=== PATIENT | female | born 1965 | race Caucasian/White ===

== ENCOUNTER → 2020-05-10 12:12 | Outpatient (CLI) | payer OTHER, SELFPAY ==
--- NOTE | ~2020-05-10 | DEXA_ITS ---
Bone Density Report Name: Ysabel Irene Age: 54 Sex: Female Ethnicity: White Date of : 1965 Indication: postmenopausal; screening for osteoporosis; height loss; cancer; Referring Provider: VAZQUEZ RAMOS Study: Bone densitometry was performed. Exam Date: May 10, 2020 Accession number: [id number] Bone Density: Region BMD T-score Z-score Classification AP Spine (L1, L2, L3) 1.088 0.6 1.7 Normal Femoral Neck (Left) 0.852 0.0 1.1 Normal Total Hip (Left) 1.005 0.5 1.2 Normal Femoral Neck (Right) 0.811 -0.3 0.7 Normal Total Hip (Right) 0.921 -0.2 0.5 Normal Total Hip Mean 0.963 0.2 0.9 Normal World Health Organization criteria for BMD impression classify patients as: Normal (T-score at or above -1.0), Osteopenia (T-score between -1.0 and -2.5), or Osteoporosis (T-score at or below -2.5). 10-year Fracture Risk: FRAX not reported because: All T-scores for Spine Total, Hip Total, Femoral Neck at or above -1.0 Treated for osteoporosis Clinical Information Provided by Patient: Is being treated for osteoporosis Has used the following medications: Vitamin D, TAMOXIFEN Has the following medical conditions: Cancer Patient maximum height was 71 Menopause Age: 50 Drinks caffeinated beverages Onset of menses at age 13 Number of children 0 Impression: The patient has normal bone mass. Discussion: It is important to ask patients whether they are taking their medications and to encourage continued and appropriate compliance with their osteoporosis therapies to reduce fracture risk. It is also important to review their risk factors and encourage appropriate calcium and vitamin D intakes, exercise, fall prevention and other lifestyle measures. Follow-Up: Consider a repeat BMD and Vertebral Fracture Assessment (VFA) exam in 2 years or sooner if medically necessary, to reassess this patient's status. Reported by: JAMES on 05/10/2020 12:34:00 PM. Reviewed, dictated and finalized at location [facility]
== END ==
PROVIDERS: PCP Internal Medicine; Visit Provider Obstetrics & Gynecology Gynecology
DX: Z78.0 Asymptomatic menopausal state (principal)
CPT/HCPCS: 77080

== ENCOUNTER → 2020-08-21 01:50 | Outpatient (CLI) | payer OTHER, SELFPAY ==
[2020-08-21 19:56] LABS: SARS-CoV-2 RNA PCR Negative
== END ==
PROVIDERS: PCP Internal Medicine; Visit Provider Internal Medicine Gastroenterology
DX: Z01.812 Encounter for preprocedural laboratory examination (principal); Z20.822 Contact with and (suspected) exposure to COVID-19
CPT/HCPCS: C9803; U0003; U0005

== ENCOUNTER 2020-08-24 03:09 | Day surgery (SDC) | payer OTHER, SELFPAY ==
[2020-08-13 08:26] VITALS: BMI 26.4
[2020-08-24 08:19] VITALS: BP 120/75; PULSE 71; RESP 18; TEMP 36.1; O2SAT 99; BMI 27.1
[2020-08-24] MEDS: LACTATED RINGERS 1,000 ML 150 ML IV CONT (08:32)
--- NOTE | 2020-08-24 08:41 | WPDANESEPPF ---
Anes - Initial Pre Proc Eval Procedure: Operation Date: 08/24/20 09:30 Proposed Procedures p Screening Colonoscopy - Vicente Chua MD Date/Time: 08/24/20 08:41 Surgeon: Vicente Chua MD Pre Op Diagnosis: neoplasm screening, family hx of colon ca Patient Data Age: 55 Gender: F Height: 5 ft 11 in Weight: 88.3 kg Last Vital Signs Temp 97 F L 08/24/20 08:19 Pulse 71 08/24/20 08:19 Resp 18 08/24/20 08:19 BP 120/75 08/24/20 08:19 Pulse Ox 99 08/24/20 08:19 Allergies Allergy/AdvReac Type Severity Reaction Status Date / Time No Known Allergies Allergy Verified 08/24/20 08:18 Home Medications Medication Instructions Recorded Confirmed Type cholecalciferol (vitamin D3) 5,000 unit PO DAILY 02/18/19 08/13/20 History [Vitamin D3] tamoxifen 20 mg PO DAILY 06/13/19 08/13/20 History sod picosulf 10 mg-magnes 3.5 160 ml PO BID #160 ml 08/18/20 Rx gram-citric 12 gram/160 mL oral solution Patient hx anesthesia problems: none Family hx anesthesia problems: none PMFSH Past Medical History Medical History (Updated 04/22/20 @ 09:40 by Marcelo Amin MD) No pertinent past medical history Surgical History Surgical History (Updated 04/26/20 @ 13:16 by Jermaine Shell) H/O bilateral mastectomy No pertinent past surgical history Family History Family History (Updated 04/26/20 @ 13:18 by Jermaine Shell) Mother Colon cancer Father , Age 86 from Alzheimer's Disease Hypertension Grandparent , Age 85 from a Fall No problems noted. Grandparent , Age 93 Heart Issues Dementia Grandparent , Age 87 Heart Issues No problems noted. Social History Social History (Updated 04/26/20 @ 13:21 by Jermaine Shell) Smoking status: Never smoker Alcohol intake: current Alcohol use details: MONTHLY Substance use: never Living arrangements: with family Gender identity (if verbalized by the patient): Female Spiritual care concerns: No Anes - Eval Final PreProcedure Day of Procedure 08/24/20 08:41 Patient weight: normal Heart: regular rate and rhythm Lungs: clear to auscultation Airway: Mallampati scale class II Neurological: alert and oriented Last oral intake: >/= 8 hours ASA classification: II Emergent: no Anesthetic plan: proceed Anesthesia type and monitoring: general GIVS and standard monitoring Informed Consent: The patient's anesthetic plan and its attendant risks and benefits were discussed with the patient/family/POA. Questions were solicited and answers provided to the satisfaction of the patient/family/POA.
--- NOTE | 2020-08-24 09:15 | PM.HPGS ---
History of Present Illness History of Present Illness Consent: Risks, benefits, and alternatives have been discussed and questions answered. Patient agrees to proceed with procedure. Chief complaint: neoplasm screening, family hx of colon ca Narrative: Ysabel Irene is a 55 year old female here for colonoscopy, last one more than 5 years ago. Mother had colon cancer Review of Systems Constitutional: Constitutional: Denies headache(s) and Denies weakness Eyes: Eyes: Denies blurry vision ENT: Reports Normal hearing present, Denies headache(s) and Denies neck pain Cardiovascular: Cardiovascular: Denies chest pain and Denies dyspnea Respiratory: Respiratory: Denies dyspnea Gastrointestinal: Gastrointestinal: Reports no additional gastrointestinal complaints Genitourinary: Genitourinary: Denies dysuria Musculoskeletal: Musculoskeletal: Denies neck pain Integumentary/Breasts: Skin/Breast: Denies dry skin Neurologic: Reports Normal hearing present, Denies headache(s) and Denies weakness Psychiatric: Psychiatric: Denies anxiety Endocrine: Endocrine: Denies change in body appearance Hematologic/Lymphatic: Hematologic/Lymphatic: Denies easy bleeding Allergic/Immunologic: Allergic/Immunologic: Denies urticaria PMFSH Past Medical History Medical History (Updated 04/22/20 @ 09:40 by Marcelo Amin MD) No pertinent past medical history Surgical History Surgical History (Updated 04/26/20 @ 13:16 by Jermaine Shell) H/O bilateral mastectomy No pertinent past surgical history Family History Family History (Updated 04/26/20 @ 13:18 by Jermaine Shell) Mother Colon cancer Father , Age 86 from Alzheimer's Disease Hypertension Grandparent , Age 85 from a Fall No problems noted. Grandparent , Age 93 Heart Issues Dementia Grandparent , Age 87 Heart Issues No problems noted. Social History Social History (Updated 04/26/20 @ 13:21 by Jermaine Shell) Smoking status: Never smoker Alcohol intake: current Alcohol use details: MONTHLY Substance use: never Living arrangements: with family Gender identity (if verbalized by the patient): Female Spiritual care concerns: No Meds Home Medications and Allergies Home Medications Medication Instructions Recorded Confirmed Type cholecalciferol (vitamin D3) 5,000 unit PO DAILY 02/18/19 08/13/20 History [Vitamin D3] tamoxifen 20 mg PO DAILY 06/13/19 08/13/20 History sod picosulf 10 mg-magnes 3.5 160 ml PO BID #160 ml 08/18/20 Rx gram-citric 12 gram/160 mL oral solution Allergies Allergy/AdvReac Type Severity Reaction Status Date / Time No Known Allergies Allergy Verified 08/24/20 08:18 Vital Signs Vital Signs - 24 hr 08/24/20 08:19 Temperature 97 F L Pulse Rate 71 Respiratory Rate 18 Blood Pressure 120/75 Pulse Oximetry 99 Exam Const: General: comfortable and no acute distress HENMT: General nose exam: Normal nares present Eyes: General: appearance normal, both eyes and all related structures Neck: Neck: no JVD Resp: Auscultation: clear to auscultation bilaterally Cardio: Rate: regular rate Rhythm: regular rhythm GI: Inspection: non-distended GI Palp: Yes Soft to palpation Skin: General skin exam: normal color Neuro: General: gait normal Speech: normal speech Extrem: General: normal to inspection Psych: Mental Status: mental status grossly normal Assessment and Plan Assessment and plan (1) Family history of colon cancer: Code(s): Z80.0 - Family history of malignant neoplasm of digestive organs Status: Acute Assessment and Plan: colonoscopy
[2020-08-24 09:48] VITALS: BP 134/89; PULSE 83; RESP 20; O2SAT 99
[2020-08-24 09:58] VITALS: BP 133/102; PULSE 83; RESP 25; O2SAT 97
[2020-08-24 10:08] VITALS: BP 128/87; PULSE 80; RESP 22; O2SAT 100
--- NOTE | 2020-08-24 10:22 | SUR.PHASEII ---
Pt initially had some nausea after procedure, nausea improved as time progressed.
== END 2020-08-24 10:25 | disposition home or self-care (01) ==
PROVIDERS: PCP Internal Medicine; Visit Provider Internal Medicine Gastroenterology
PROC: 0DJD8ZZ Inspection of Lower Intestinal Tract, Via Natural or Artificial Opening Endoscopic (ICD-10-PCS; CPT 45378; principal; 2020-08-24 09:30)
DX: Z12.11 Encounter for screening for malignant neoplasm of colon (principal); D12.2 Benign neoplasm of ascending colon; D12.5 Benign neoplasm of sigmoid colon; K64.8 Other hemorrhoids; Z80.0 Family history of malignant neoplasm of digestive organs; Z90.13 Acquired absence of bilateral breasts and nipples
CPT/HCPCS: 45385; 88305; C9803; J2001; J2704; J7120; U0003; U0005

== ENCOUNTER 2020-12-24 12:30 | Outpatient (RCR) | payer OTHER, SELFPAY ==
--- NOTE | 2020-12-07 14:35 | PTOPEVAL ---
PHYSICAL THERAPY EVALUATION AND PLAN OF CARE 12-07-20 Thank you for referring Ysabel Irene to [facility].? She is scheduled to be seen for therapy? 2 x/week for 3 weeks. Please review, sign, date and return this plan of care LINO. I agree with and certify that the following plan of care is medically necessary. Referring Physician Date Attending Provider: Marcelo Amin MD *PT Outpatient Evaluation Document 12/07/20 13:35 ELENO (Rec: 12/07/20 14:35 ELENO [id number]) Past Medical History Source of Past Medical History Recalled from Previous Visit, Confirmed with Patient/Family Neurological History Hx Neurological Disorders No Significant History Cardiovascular History Hx Hypertension Yes: monitor- diet control Respiratory History Hx Respiratory Disorders No Significant History Gastrointestinal History Hx Polyps Yes Genitourinary History Hx Urinary Tract Infection Yes Musculoskeletal History Hx Musculoskeletal Disorders No Significant History Hematological History Hx Hematological Disorders No Significant History Endocrine History Hx Endocrine Disorders No Significant History HEENT History Hx HEENT Disorders No Significant History Integumentary History Hx Skin Disorders No Significant History Reproductive History Hx Mastectomy Yes: DOUBLE MASTECTOMY 2018 Hx Post Menopausal Yes Psychosocial History Hx Psychiatric Disorders No Significant History Pain History History of Any Previous or Ongoing No Significant History Instance of Pain Anesthesia History Hx Anesthesia Reactions No Significant History Other History Hx Cancer Yes: BREAST CA 2019 Hx Chemotherapy Yes Hx Radiation Therapy Yes Evaluation Information Problem Diagnosis lymphedema over L trunk Onset July 2020 Prior Level of Function Activity Level (Last 3 Months) Occupation not working outside of home Hand Dominance Right Activity of Daily Living Ability Independent Indoor/Home Mobility Independent Community Mobility Independent Stairs Ability Independent Functional Cognition (Planning, Shopping Independent , Taking Medications) Cooking Yes Cleaning Yes Laundry Yes Shopping Yes Driving Yes Comments Additional Prior Level of Function per pt- surgeon restrictions Comments of 30# lifting; family assist with heavy lifting tasks; is
--- NOTE | 2020-12-17 12:13 | PCPTNOTE ---
pt called att 12pm for 12:30 appt. stating she would have to cancel. Did not give a reason but was apologetic.
--- NOTE | 2020-12-24 13:36 | PTOPEVAL ---
PHYSICAL THERAPY DISCHARGE 12-24-20 Refer to the clinical summary below for her status today, compared to the initial evaluation. The goals were partiallly achieved. Thank you for referring Ysabel Irene to [facility].? Please review, sign, date and return this Discharge summary LINO. I agree with and certify that the following plan of care is medically necessary. Referring Physician Date Attending Provider: Marcelo Amin MD CC: per pt request, Gregor Buckner MD Document 12/24/20 12:35 ELENO (Rec: 12/24/20 13:36 ELENO [email or web address]) Assessment Status Discharge Subjective Information Judi reports:she is pleased Query Text:As Reported By Patient/ with how she has improved Family since coming for therapy-- shoulders and trunk are not as tight with less swelling over the side of her trunk; and her scars are looser; is doing her stretches and self massage; is going shopping this weekend to get a zip up front sports bra for compression to her sides; request that her report be forwarded to Dr Buckner also; feels that she is ready to be completed with her therapy. Pain Assessment Timing of Pain Assessment Timing of Pain Assessment Assessment Self Report Self Report Pain Level 0 Pain Score Pain Score 0: Self Report Upper Extremity Range of Motion General Upper Extremity Range of Motion Reason Not Measured WNL/Left,WNL/Right Gross Upper Extremity Range of Motion in sitting: active R and L Comments shoulder flexion and ER with range that is WNL, and does not report any tightness or pain; Lymphedema Evaluation Skin Inspection Location Left Upper Extremity,Left Anterior Lower Quadrant,Left Anterior Upper Quadrant,Left Posterior Lower Quadrant,Left Posterior Upper Quadrant,Right Upper Extremity,Right Anterior Lower Quadrant,Right Anterior Upper Quadrant,Right Posterior Lower Quadrant,Right Posterior Upper Quadrant Lymphedema Stage I Skin Inspection Comment - R trunk: anterior trunk scar with good mobility; no ed
== END 2020-12-24 16:16 | disposition home or self-care (01) ==
LOC: ANHPT 12:30
PROVIDERS: PCP Internal Medicine; Visit Provider Internal Medicine
DX: I89.0 Lymphedema, not elsewhere classified (principal)
CPT/HCPCS: 97110; 97140; 97161

== ENCOUNTER 2024-06-04 01:13 | Day surgery (SDC) | payer OTHER, SELFPAY ==
[2024-05-26 08:54] VITALS: BMI 26.9
--- OUTSIDE RECORDS SUMMARY | 2024-06-04 01:24 | XMS_ITS | Referral Summary ---
Author Organization [place] [id number] Address [address] [place] [address] Care Team Providers Care Heel Nailing Machine Operator Name Role Phone Caro Cline NP Unavailable Gregor Buckner DO Unavailable [phone] Marcelo Palmer MD Unavailable [phone] Yemi Marin MD Primary Care Provider [phone] Encounters Date Type Department Care Team Description 04/23/2024 10:45 AM TUNNEL MUCKER Office Visit [facility] [address] [place] [address] [address] [place] [address] Gregor Buckner DO Malignant neoplasm of upper-outer quadrant of right breast in female, estrogen receptor positive (HCC) (Primary Dx) 04/11/2024 Telephone [facility] [address] [place] [address] [address] [place] [address] Dyllan Hunter CMA 03/17/2024 Telephone [facility] [address] [place] [address] [address] [place] [address] Dyllan Hunter CMA from Last 3 Months Allergies No known active allergies Medications cholecalciferol (VITAMIN D-3) 2000 unit tabletIndicatio ns:Vitamin D Deficiency Take 1 tablet (2,000 Units total) by mouth 2 (two) times a day Active cyanocobalamin (Vitamin B-12) 1,000 mcg/mL injection 2 Active mupirocin (BACTROBAN) 2 % ointment APPLY TOPICALLY TO THE AFFECTED AREA TWICE DAILY 2 Active BD Integra Syringe 3 mL 23 gauge x 1 syringe 2 Active Nascobal 500 mcg/spray spray,non-aeros ol SPRAY ONCE INTO ONE NOSTRIL ONCE WEEKLY ALTERNATING WITH THE NOSTRIL THE NEXT WEEK 2 Active tamoxifen (NOLVADEX) 20 mg tabletIndicatio ns:Malignant neoplasm of upper-outer quadrant of right breast in female, estrogen receptor positive (HCC) Take 1 tablet (20 mg total) by mouth daily 90 tablet 3 5 Active Active Problems Problem Noted Date Diagnosed Date Lymphedema of upper extremity, bilateral 021 H/O bilateral mastectomy 10/03/2019 History of breast cancer 10/03/2019 Persons encountering health services in other specified circumstances 08/13/2018 Malignant neoplasm of upper- outer quadrant of right breast in female, estrogen receptor positive 08/09/2018 Cancer Staging:Clinical stage from 08/09/2018:Stage Unknown(cTX, cN1(f), cM0, G3, ER+, KS+, HER2-) - Signed by Gregor Buckner DO on 08/12/2018 Pathologic stage from 01/31/2019:No Stage Recommended(ypT1a, pN0(i+), cM0, G1, ER+, KS+, HER2-) - Signed by Gregor Buckner DO on 02/05/2019 Atypical ductal hyperplasia of breast 04/23/2015 Mammographic calcification 04/01/2015 Immunizations Immunization Administration Dates Next Due Influenza, Unspecified 12/01/2017 Pfizer SARS-CoV-2 Monovalent Vaccination (12+ Yrs) PURPLE 06/26/2020,06/03/2020 TD Preservative Free 02/20/2017 Social History Tobacco Use Types Packs/Day Years Used Date Smoking Tobacco: Never Smokeless Tobacco: Never Tobacco Cessation:Counseling Given: Not Answered Alcohol Use Standard Drinks/Week Comments Not Currently 0 (1 standard drink = 0.6 oz pur e alcohol) AUDIT-C Answer Date Recorded Q1: How often do you have a drink containing alcohol? Never 09/14/2023 Q2: How many drinks containi ng alcohol do you have on a typical day when you are drinking? Patient does not drink Q3: How often do you have si x or more drinks on one occasion? 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 Not on file Not on file Not on file Last Filed Vital Signs Vital Sign Reading Time Taken Comments Blood Pressure 134/85 04/23/2024 11:27 AM TUNNEL MUCKER Pulse 82 04/23/2024 11:27 AM TUNNEL MUCKER Temperature 37.1 C (98.8 F) 04/23/2024 11:27 AM TUNNEL MUCKER Respiratory Rate 18 04/23/2024 11:27 AM TUNNEL MUCKER Oxygen Saturation 96% 04/23/2024 11:27 AM TUNNEL MUCKER Inhaled Oxygen Concentration - - Weight 86.8 kg (191 lb 6.4 oz) 04/23/2024 11:27 AM TUNNEL MUCKER Height 179.1 cm (5' 10.5 ) 04/23/2024 11:[address] Body Mass Index 27.07 04/23/2024 11:27 AM TUNNEL MUCKER Plan of Treatment Not on file Procedures Procedure Name Priority Date/Time Associated Diagnosis Comments CRP, HIGH SENSITIVITY Routine 04/09/2024 9:22 AM TUNNEL MUCKER Malignant neoplasm of upper-outer quadrant of right breast in female, estrogen receptor positive (HCC) COMPREHENSIVE METABOLIC PANEL Routine 04/09/2024 9:22 AM TUNNEL MUCKER Malignant neoplasm of upper-outer quadrant of right breast in female, estrogen receptor positive (HCC) CBC WITH AUTO DIFFERENTIAL Routine 04/09/2024 9:22 AM TUNNEL MUCKER Malignant neoplasm of upper-outer quadrant of right breast in female, estrogen receptor positive (HCC) SCREENING MAMMOGRAM BILATERAL W ABHIJEET Schedule Routine, Read Routine (OP Routine) 06/13/2018 8:44 AM CDT Encounter for screening mammogram for malignant neoplasm of breast from Last 3 Months or Most Recently Relevant to Health Maintenance Results * (ABNORMAL) CBC with auto differential (04/09/2024 9:22 AM TUNNEL MUCKER) [facility] WBC 5.7 3.8 - 10.8 Thousand/u L [facility] RBC, POC 4.16 3.80 - 5.10 Million/uL [facility] Hgb 12.6 11.7 - 15.5 g/dL [facility] Hct 39.9 35.0 - 45.0 % [facility] MCV 95.9 80.0 - 100.0 fL [facility] MCH 30.3 27.0 - 33.0 pg [facility] MCHC 31.6(L) 32.0 - 36.0 g/dL [facility] Comment: For adults, a slight decrease in the calculated MCHC value (in the range of 30 to 32 g/dL) is most likely not clinically significant; however, it should be interpreted with caution in correlation with other red cell parameters and the patient's clinical condition. Rdw 13.5 11.0 - 15.0 % [facility] Platelets 282 140 - 400 Thousand/u L [facility] MPV 10.7 7.5 - 12.5 fL [facility] Neutrophils, abs 3,882 1,500 - 7,800 cells/uL [facility] Lymphocytes, abs 1,254 850 - 3,900 cells/uL [facility] Monocyte abs 456 200 - 950 cells/uL [facility] Eosinophils, abs 91 15 - 500 cells/uL [facility] Basophils, abs 17 0 - 200 cells/uL [facility] Neutrophils 68.1 % [facility] Lymphocyte pct 22.0 % [facility] Monocytes 8.0 % [facility] Eosinophils 1.6 % [facility] Basophils 0.3 % [facility] Blood 04/09/2024 9:22 AM TUNNEL MUCKER 04/09/2024 9:22 AM TUNNEL MUCKER Gregor Buckner DO LAB BLOOD ORDERABLES Final R esult [facility] [address] [place] [address] * (ABNORMAL) CRP (cardiac risk) (04/09/2024 9:22 AM TUNNEL MUCKER) Pathologist [facility] hsCRP 5.3(H) mg/L [facility] Comment: Reference Range Optimal <1.0 Ten HODGE et al. Endocr Pract.2017;23(Suppl 2):1-87. For ages >17 Years: hs-CRP mg/L Risk According to AHA/CDC Guidelines <1.0 Lower relative cardiovascular risk. 1.0-3.0 Average relative cardiovascular risk. 3.1-10.0 Higher relative cardiovascular risk. Consider retesting in 1 to 2 weeks to exclude a benign transient elevation in the baseline CRP value secondary to infection or inflammation. >10.0 Persistent elevation, upon retesting, may be associated with infection and inflammation. Yanira TA, Elizabeth GA, Filipe RW, et al. Markers of inflammation and cardiovascular disease: application to clinical and public health practice: A statement for healthcare professionals from the Centers for Disease Control and Prevention and the [place] [employer]. Circulation 2003; 107(3): 499-511. Blood 04/09/2024 9:22 AM TUNNEL MUCKER 04/09/2024 9:22 AM TUNNEL MUCKER Gregor Buckner DO LAB BLOOD ORDERABLES Final R esult [facility] [address] [place] [address] * Comprehensive metabolic panel (04/09/2024 9:22 AM TUNNEL MUCKER) Pathologist [facility] Glucose 96 65 - 99 mg/dL [facility] Comment: Fasting reference interval BUN 25 7 - 25 mg/dL [facility] Creatinine 1.02 0.50 - 1.03 mg/dL [facility] eGFR 64 > OR = 60 mL/min/1.7 3m2 [facility] BUN/creat ratio SEE NOTE: 6 - 22 (calc) [facility] Comment: Not Reported: BUN and Creatinine are within reference range. Sodium 143 135 - 146 mmol/L [facility] Potassium, pl 4.6 3.5 - 5.3 mmol/L [facility] Chloride 107 98 - 110 mmol/L [facility] CO2 30 20 - 32 mmol/L [facility] Calcium 9.5 8.6 - 10.4 mg/dL [facility] Protein, sr 6.6 6.1 - 8.1 g/dL [facility] Albumin 4.2 3.6 - 5.1 g/dL [facility] GLOBULIN 2.4 1.9 - 3.7 g/dL (calc) [facility] Alb/glob ratio 1.8 1.0 - 2.5 (calc) [facility] Bilirubin, total 0.6 0.2 - 1.2 mg/dL [facility] Alk phos 45 37 - 153 U/L [facility] AST 16 10 - 35 U/L [facility] ALT (SGPT) 12 6 - 29 U/L [facility] Blood 04/09/2024 9:22 AM TUNNEL MUCKER 04/09/2024 9:22 AM TUNNEL MUCKER Gregor Buckner DO LAB BLOOD ORDERABLES Final R esult [facility] [address] [place] [address] * Screening Mammogram Bilateral W Abhijeet (06/13/2018 8:44 AM CDT) Anatomical Region Laterality Modality Breast Bilateral Mammography Narrative 06/14/2018 8:59 AM CDT Mammogram Technique: Bilateral Digital Breast Tomosynthesis, Bilateral C-view 2D Screening mammogram. Views obtained: bilateral craniocaudal and bilateral mediolateral oblique. Computer Aided Detection was performed. Mammogram Findings: The present examination has been compared to prior imaging studies performed at [facility] on 04/05/2015, 04/25/2016 and 05/28/2017. There are scattered areas of fibroglandular density. There are round calcifications with grouped distribution and associated architectural distortion in the middle upper outer quadrant of the right breast. There is no suspicious abnormality in the left breast. Impression: Calcifications in the right breast require additional evaluation. Additional views are recommended. OVERALL FINAL ASSESSMENT: BI-RADS CATEGORY 0: Incomplete: Need additional imaging evaluation. Procedure Note Chhaya Davidson MD - 06/14/2018 Mammogram Technique: Bilateral Digital Breast Tomosynthesis, Bilateral C-view 2D Screening mammogram. Views obtained: bilateral craniocaudal and bilateral mediolateral oblique. Computer Aided Detection was performed. Mammogram Findings: The present examination has been compared to prior imaging studies performed at [facility] on 04/05/2015, 04/25/2016 and 05/28/2017. There are scattered areas of fibroglandular density. There are round calcifications with grouped distribution and associated architectural distortion in the middle upper outer quadrant of the right breast. There is no suspicious abnormality in the left breast. Impression: Calcifications in the right breast require additional evaluation. Additional views are recommended. OVERALL FINAL ASSESSMENT: BI-RADS CATEGORY 0: Incomplete: Need additional imaging evaluation. Caro Cline NP IMG MAMMO PROC EDURES Final Result from Last 3 Months or Most Recently Relevant to Health Maintenance Insurance [facility] [employer] OPEN ACCESS [facility] Advance Directives For more information, please contact: [phone] * Full Code (Latest Code Status on File) Date Activated Date Inactivated Comments 01/10/2019 10:53 PM 01/11/2019 4:32 PM Care Teams Heel Nailing Machine Operator Relationship Specialty Start Date End Date Yemi Mairn MD [address] [place] [address] PCP - General Internal Medicine 09/14/23 Caro Cline, DIAGNOSTIC TECHNOLOGIST [address] [address] Referring Physician Nurse Practitioner 07/25/18 Gregor Buckner DO [address] [place] [id number] Medical Oncologist/Hematologis t Hematology and Oncology 08/14/18 Marcelo Palmer MD [address] [place] [address] Referring Physician Surgical Oncology 01/09/20
--- OUTSIDE RECORDS SUMMARY | 2024-06-04 01:24 | XMS_ITS | Data Portability ---
Author Organization [facility], Main Office Address [address] [place] [address] Care Team Providers Care Photo Optics Technician Name Role Phone ELDER VILLEDA Hematology Nurse Educator Unavailable Assessment No assessment recorded. Plan of Treatment Reminders Order Date Submit Date Provider Last Modified By Organization Details Last Modified Time Details Appointments None recorded. Lab vitamin D, 25-hydrox y, total, serum 025 025 [email or web address] [facility] (Lab), [address] [place], [address], 5 15:54:54 lipid panel, serum 025 025 [email or web address] [facility] (Lab), [address] [place], [address], 5 15:54:54 CMP, serum or plasma 025 025 [email or web address] [facility] (Lab), [address] [place], [address], 5 15:54:54 vitamin B12, serum 025 025 [email or web address] [facility] (Lab), [address] [place], [address], 5 15:54:54 culture, urine 024 024 MOLLY [facility] (Lab), [address] [place], [address], 4 08:32:06 CBC w/ auto diff [address] (Lab), [address] [place], [address], 3 07:57:51 CMP, serum or plasma [address] (Lab), [address] [place], [address], 3 07:57:51 lipid panel, serum 023 023 [facility] (Lab), [address] [place], [address], 3 11:27:30 vitamin D, 25-hydrox y, total, serum [address] (Lab), [address] [place], [address], 3 07:57:52 vitamin B12, serum [address] (Lab), [address] [place], [address], 3 07:57:51 CBC w/ auto diff [address] (Lab), [address] [place], [address], 3 07:57:51 Referral None recorded. Procedures None recorded. Surgeries None recorded. Imaging None recorded. Medication Orders None recorded. Patient TargetsNo targets recorded. Patient InstructionsNo instructions recorded. Reason for Referral None Reported. Results Created Date Observation Date Name Description Value Unit Range Abnormal Flag Note LastModifiedBy Organization Detail LastModifiedTime 05/11/19 24 05/11/2023 urina lysis , dipst ick Leukocytes (reference range: negative evan/ l) Small Not Available [facility] [address] [place], [address], 05/11/2023 12:43:53 05/11/19 24 05/11/2023 urina lysis , dipst ick Nitrite (reference rage: negative mg/dl) negati ve Not Available [facility] [address] [place], [address], 05/11/2023 12:43:53 05/11/19 24 05/11/2023 urina lysis , dipst ick Urobilinogen (reference range: 0.2-1 mg/dl) 0.2 Not Available [facility] [address] [place], [address], 05/11/2023 12:43:53 05/11/19 24 05/11/2023 urina lysis , dipst ick Protein (reference range: negative mg/dl) Negati ve Not Available [facility] [address] [place], [address], 05/11/2023 12:43:53 05/11/19 24 05/11/2023 urina lysis , dipst ick pH (reference range: 5-7) 5.5 Not Available [facility] [address] [place], [address], 05/11/2023 12:43:53 05/11/19 24 05/11/2023 urina lysis , dipst ick Blood (reference range: negative Lucas/ l) Negati ve Not Available [facility] [address] [place], [address], 05/11/2023 12:43:53 05/11/19 24 05/11/2023 urina lysis , dipst ick Specific Ayr (reference range: 1.005-1.030) 1.[address] [facility] [address] [place], [address], 05/11/2023 12:43:53 05/11/19 24 05/11/2023 urina lysis , dipst ick Ketone (reference range: negative mg/dl) Negati ve Not Available [facility] [address] [place], [address], 05/11/2023 12:43:53 05/11/19 24 05/11/2023 urina lysis , dipst ick Bilirubin (reference range: negative mg/dl) Negati ve Not Available [facility] [address] [place], [address], 05/11/2023 12:43:53 05/11/19 24 05/11/2023 urina lysis , dipst ick Glucose (reference range: negative mg/dl) Negati ve Not Available [facility] [address] [place], [address], 05/11/2023 12:43:53 05/11/19 24 05/11/2023 urina lysis , dipst ick Appearance Clear Not Available [facility] [address] [place], [address], 05/11/2023 12:43:53 05/11/19 24 05/11/2023 urina lysis , dipst ick Color Yellow Not Available [facility] [address] [place], [address], 05/11/2023 12:43:53 05/14/19 24 08/24/2020 colon oscop y scree jseús (PROC ) No observ ation record ed. BARCODE Not Available 2023 17:49:50 Result Notes None recorded. Problems Name Problem SNOMED Code Status Onset Date Resolution Date Notes Provider Name and Address Organization Details Recorded Time Mammogra phy abnormal 321784828 Completed 201709/26/2017 Not Available [facility] 3 14:48:49 Malignan t tumor of breast 448411403 Active [address] Buckner Not Available [facility] 3 14:48:49 Cough 97590984 Completed Not Available [facility] 3 14:48:49 Acute upper respirat ory infectio n 85264296 Completed Not Available [facility] 3 14:48:49 Cobalami n deficien cy 707984649 Active 2022 Gayatri galeano RMA null, [place] [employer] [facility] [employer] 5 14:32:09 Acute urinary tract infectio n 101638923 Completed 202305/05/2024 Gayatri galeano RMA null, [employer] [facility] [employer] 5 14:32:12 Vitamin D deficien cy 61370036 Active 2024 Yemi Marin MD [address] [place] [address], [address] , [facility] [employer] [facility] [employer] 5 14:53:27 Problem Notes None recorded. Procedures Surgical History Date Name Laterality Status Provider Name and Address Organization Details Recorded Time 12/31/2018 Masectomy completed Kita Martinez RN [facility] 07/05/2022 14:40:00 Imaging Results Imaging Date Name Status [facility]Modified by [facility] Details LastModified Time 08/24/2020 colonoscopy screening (PROC) completed [facility] Information not available 05/14/2023 17:49:50 Procedure Notes None recorded. Medical Equipment None Reported. Allergies No known drug allergies Medications Name Sig Start Date Stop Date Status Note LastModified by Organization Details LastModified Time amoxicilli n 500 mg capsule Take 1 capsule 3 times a day by oral route for 10 days. active Not Available Not Available No t Available silver sulfadiazi ne 1 % topical cream APPLY 1.5 MM THICK APPLICAT ION TOPICALL Y AA BID 07/05 completed Not Available Not Available Not Available doxycyclin e hyclate 100 mg capsule TK 1 C PO BID WF 07/05 completed Not Available Not Available Not Available azithromyc in 250 mg tablet Take by oral route.2t abs first day then 1 daily active Not Available Not Available No t Available ibuprofen 800 mg tablet 12/25 completed Not Available Not Available Not Available Keflex 500 mg capsule Take 1 capsule 3 times a day by oral route for 6 days. 01/19 completed Not Available Not Available Not Available ondansetro n HCl 4 mg tablet TK 1 T PO Q 6 H PRN NV 12/25 completed Not Available Not Available Not Available prednisone 20 mg tablet TK 1 T PO D IN THE MORNING WF 07/05 completed Not Available Not Available Not Available Anucort-HC 25 mg suppositor y 12/25 completed Not Available Not Available Not Available clobetasol 0.05 % topical cream APPLY TO VULVA AREA QD PRN 12/25 completed as needed Not Available Not Available Not Available penicillin V potassium 500 mg tablet TAKE 2 TABLETS PO NOW AND THEN 1 TABLET QID UNTIL GONE 02/20 completed Not Available Not Available Not Available meclizine 12.5 mg tablet active Not Available Not Available Not Available Tamiflu 75 mg capsule active Not Available Not Available N ot Available triamcinol one acetonide 0.1 % topical cream JULIA EXT AA BID 07/05 completed Not Available Not Available Not Available Macrobid 100 mg capsule Take 1 capsule every 12 hours by oral route for 5 days. 05/11 completed Not Available Not Available Not Available oxycodone- acetaminop hen 5 mg-325 mg tablet active Not Available Not Available Not Available Tessalon Perles 100 mg capsule Take 1 capsule 3 times a day by oral route for 5 days. 01/25 completed Not Available Not Available Not Available meclizine 25 mg tablet TK 1 T PO TID PRF DIZZINES S 02/20 completed Not Available Not Available Not Available Proctofoam HC 1 %-1 % INSERT 1 APPLICAT OR RECTALLY BID PRN FOR HEMORRHO IDS 12/25 completed Not Available Not Available Not Available dexamethas one 4 mg tablet 12/25 completed Not Available Not Available Not Available ergocalcif trina (vitamin D2) 1,250 mcg (50,000 unit) capsule TK ONE C PO Q WEEK WITH A LARGE MEAL 03/20 completed Not Available Not Available Not Available clobetasol 0.05 % topical ointment active Not Available Not Available Not Available lorazepam 1 mg tablet DISSOLVE 1 T UNT Q 4 HOURS PRN FOR NAUSEA AND VOMITING 12/25 completed Not Available Not Available Not Available Cipro 250 mg tablet Take 1 tablet twice a day by oral route for 3 days. 05/05 completed Not Available Not Available Not Available tamoxifen 20 mg tablet Take 1 tablet every day by oral route. active Not Available Not Available No t Available metoclopra mide 10 mg tablet 12/25 completed Not Available Not Available Not Available oxycodone 5 mg tablet 07/05 completed Not Available Not Available Not Available Microgesti n Fe 1.5/30 (28) 1.5 mg-30 mcg (21)/75 mg (7) tablet TK ONE T PO D active Not Available Not Available No t Available Estrace 0.01% (0.1 mg/gram) vaginal cream INSERT 1 GRAM VAG TWICE A WEEK FOR 3 MONTHS 03/20 completed Not Available Not Available Not Available Vitamin D3 25 mcg (1,000 unit) capsule 4,000 u daily 2018 active Not Available Not Available Not Avai lable Microgesti n 1.5/30 (21) 1.5 mg-30 mcg tablet TK 1 T PO QD 03/20 completed Not Available Not Available Not Available Vitamin B12 05/05 completed Not Available Not Available Not Available Loestrin 24 Fe 1 mg-20 mcg (24)/75 mg (4) tablet active Not Available Not Available N ot Available Bystolic 10 mg tablet take 1 po qd 09/04 completed Not Available Not Available Not Available Bystolic 5 mg tablet Take 1 tablet every day by oral route for 30 days. 01/30 completed Not Available Not Available Not Available GaviLyte-G 236 gram-22.74 gram-6.74 gram-5.86 gram oral solution active Not Available Not Available Not Available Elina [employer] 180 mg tablet Take 1 tablet every day by oral route for 6 days. 02/20 completed Not Available Not Available Not Available Vitals Date Recorded Body weight Body mass index (BMI) Body height Body temperature Heart rate Oxygen saturation Oxygen saturation in Arterial blood by Pulse oximetry Systolic blood pressure Diastolic blood pressure Provider Name and Address Organization Details Last Updated DateTime 3 84042.1 1 g 23.6 kg/m2 180.34 cm 97.3 [degF] 72 /min 98 % 98 % 120 mm[Hg] 70 mm[Hg] Kita Martinez RN [facility] [employer] [facility] 3 14:42:01 Date Recorded Body height Body mass index (BMI) Body weight Body temperature Heart rate Oxygen saturation Oxygen saturation in Arterial blood by Pulse oximetry Systolic blood pressure Diastolic blood pressure Provider Name and Address Organization Details Last Updated DateTime 4 180.34 cm 26.6 kg/m2 44831.1 4 g 97.5 [degF] 88 /min 98 % 98 % 124 mm[Hg] 78 mm[Hg] Lio Aviles CMA [place] [employer] [facility] [employer] 4 12:16:44 Date Recorded Body height Body mass index (BMI) Body weight Body temperature Heart rate Oxygen saturation Oxygen saturation in Arterial blood by Pulse oximetry Systolic blood pressure Diastolic blood pressure Provider Name and Address Organization Details Last Updated DateTime 5 180.34 cm 26.9 kg/m2 60925.3 3 g 97.6 [degF] 105 /min 97 % 97 % 120 mm[Hg] 76 mm[Hg] GIAN Srivastava [place] [employer] [facility] [employer] 5 14:27:25 Social History Question Answer Notes LastModified by Organizat ion Details LastModified Time Tobacco Smoking Status Never Smoker Bibi lora [place] [employer] [facility] [employer] 05/11/2023 12:06:43 What Is Your Level Of Alcohol Consumption? Moderate [email or web address] Information not available 07/05/2022 What Is Your Level Of Caffeine Consumption? Moderate [email or web address] Information not available 07/05/2022 In The 14 Days Before Symptom Onset, Have You Had Close Contact With A Laboratory-confir med COVID-19 While That Case Was Ill? No [email or web address] Information not available 05/11/2023 In The 14 Days Before Symptom Onset, Have You Had Close Contact With A Person Who Is Under Investigation For COVID-19 While That Person Was Ill? No [email or web address] Information not available 05/11/2023 Are You Currently Employed? No [email or web address] Information not available 05/11/2023 What Type Of Diet Are You Following? REGULAR [email or web address] Information not available 07/05/2022 What Is The Highest Grade Or Level Of School You Have Completed Or The Highest Degree You Have Received? RH19367-2 [email or web address] Information not available 05/11/2023 Have There Been Any Changes To Your Family Or Social Situation? No Information no t available 05/11/2023 Do You Use Insect Repellent Routinely? Yes [email or web address] Information not available 05/11/2023 [facility] Information not available 05/11/2023 What Was The Date Of Your Most Recent Tobacco Screening? 07/05/2022 [email or web address] Information not available 05/11/2023 How Many Children Do You Have? 0 [email or web address] Information not available 05/11/2023 Do You Have Any Pets? Yes [email or web address] Information not available 05/11/2023 Do You Use Your Seat Belt Or Car Seat Routinely? Yes [email or web address] Information not available 05/11/2023 Do You Have Smoke And Carbon Monoxide Detectors In Your Home? Yes [email or web address] Information not available 05/11/2023 Are You Passively Exposed To Smoke? No [email or web address] Information no t available 05/11/2023 Are There Any Smokers In Your House? No [email or web address] Information not available 05/11/2023 Do You Feel Stressed (tense, Restless, Nervous, Or Anxious, Or Unable To Sleep At Night)? [id number] [email or web address] Information not available 05/11/2023 Do You Use Any Illicit Or Recreational Drugs? No [email or web address] Information not available 05/11/2023 Do You Use Sunscreen Routinely? Yes [email or web address] Information not available 05/11/2023 Have You Recently Traveled Abroad? No [email or web address] Information not available 05/11/2023 Do You Have Any Dietary Restrictions? No [email or web address] Information not available 05/11/2023 Sex: Unknown Functional Status Question Answer Note LastModified by Organizat ion Details LastModified Time What is your exercise level? Occasional [email or web address] Information not available 07/05/2022 Mental Status None recorded. Family History Relationship Description Onset Age of this Age Resolved Age Notes LastModified by Organization Details LastModified Time Mother Family history of malignant neoplasm [email or web address] Not available 2023 12:20:41 Medical History No medical history recorded. Gynecological HistoryNo gynecological history recorded. Obstetrics History GPAL:G 0 P 0 0 0 0 Immunizations Vaccine Type Date Status Note Provider Nam e and Address Organization Details Recorded Time Influenza, split virus, quadrivalent, PF 8 completed Not Available [facility] 05/31/2022 14:53:07 Influenza, split virus, quadrivalent, PF 7 completed Not Available [facility] 05/31/2022 14:53:07 Td (adult), 5 Lf tetanus toxoid, preservative free, adsorbed 7 completed Not Available [facility] 05/31/2022 14:53:08 Influenza, split virus, quadrivalent, PF 6 completed Not Available [facility] 05/31/2022 14:53:08 Past Encounters Encounter ID Performer Location Encounter Start Date Encounter Closed Date Diagnosis/Indication Diagnosis SNOMED-CT Code Diagnosis ICD10 Code Diagnosis Note [id number] Yemi Marin MD [facility] Internal [facility] [address] [facility] [place] [address] 07/05/2022 14:28:45 07/05/2022 15:10:34 Adult health examination 635301250 Z00.00 colonoscop y yrs ago at [facility] more mammogramD ex- 2021 Cobalamin deficiency 190 483708 E53.8 on meds Malignant tumor of breast 004193124 C50.919 Long-term drug therapy 681105052 Z79.899 Hyperlipid emia screening 667024249 Z13.220 History of polyp of colon 724934893 Z86.010 needs record [id number] Yemi Marin MD [facility] [address] [facility] [place] [address] 05/11/2023 12:05:27 05/11/2023 12:45:14 Urinary symptoms 896219157 R39.9 dip stick with small leucocytes , send for cx Pain of le ft knee joint 8195352766 50604 M25.562 apply voltaren gel, heat, stretch [id number] Yemi Marin MD [facility] [address] [place] [address] 05/05/2024 14:21:47 05/05/2024 15:14:06 Adult health examination 563831699 Z00.00 Colonoscop y yrs ago at [place], getting it in 06/24No more mammogramD exa- 2023FLU- Has not had a recent inj. DeclinedPn eumovax- NEVERCOVID - Had only 1 Malignant tumor of breast 035792203 C50.919 s/p bilateral mastectomy Cobalamin deficiency 190 545981 E53.8 was on shots, levels were too highcbc was nl in 04/26 at oncology Vitamin D deficiency 347 52879 E55.9 on otc Health Concerns Section Related Observation LastModified by Organization Detai ls LastModified Time None Recorded Concern Status LastModified by Organization Details LastModified Time None Recorded Advance Directives Directive None Recorded Payers Encounter Date Sequence Insurance Name Policy Number Policy Byers Covered Member ID Byers Member ID Guarantor Name 07/05/2022 1 [facility] [id number] Ysabel [id number] Ysabel Irene 05/11/2023 1 [facility] [id number] Ysabel [id number] Ysabel Irene 05/05/2024 1 [facility] [id number] Ysabel [id number] Ysabel Irene Notes Date Note Type Note Provider Name and Address Organization Details Recorded Time 07/05/2022 text/html new pt appointme nt, she used to see me yrs ago, had insurance non coverage Breast cancer-double mastectomy in 2019, s/ chemo and RT, seeing oncologist, oncology Dr valentin tamoxifen qd H/o HTN- was stopped yrs ago, has taken Bystolic B 12 def- on meds from gyne colonoscopy- polyps removed, mother had colon cancer Yemi Marin MD [address] [facility], [address], [place], [address], [employer] 07/05/2022 15:09:33 05/11/2023 text/html c/o frequency of urination off and on , no burning , no blood in the urine, urine is not cloudy Left knee pain only in sitting position, no swelling, no injuryno pain on walking Yemi Marin MD [address], [place], [address], [employer] 05/11/2023 13:01:44 05/05/2024 text/html Pt 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 Buckner and Currently in [facility]- Tamoxifen 20mg daily Vitamin B12 def- was too high and had to put it on hold for a while, Vitamin D def- On OTC h/o of HTN, has taken Bystolic in kely past, bp is good without meds Colon Polyp- getting colonoscopy in 06/24, FH of colon cancer-Mother Yemi Marin MD [address], [address], [place], [address], [employer] 05/05/2024 14:59:33 OBGyn Episode No OBEpisode recorded.
--- OUTSIDE RECORDS SUMMARY | 2024-06-04 01:24 | XMS_ITS ---
Author Organization [facility] [id number] [facility] Address [address] [place] [address] Care Team Providers Care Forensic Engineer Name Role Phone Caro Cline NP Unavailable Gregor Buckner DO Unavailable [phone] Marcelo Palmer MD Unavailable [phone] Yemi Marin MD Primary Care Provider [phone] Active Problems Problem Noted Date Diagnosed Date Lymphedema of upper extremity, bilateral 021 H/O bilateral mastectomy 10/03/2019 History of breast cancer 10/03/2019 Persons encountering health services in other specified circumstances 08/13/2018 Malignant neoplasm of upper- outer quadrant of right breast in female, estrogen receptor positive 08/09/2018 Cancer Staging:Clinical stage from 08/09/2018:Stage Unknown(cTX, cN1(f), cM0, G3, ER+, VA+, HER2-) - Signed by Gregor Buckner DO on 08/12/2018 Pathologic stage from 01/31/2019:No Stage Recommended(ypT1a, pN0(i+), cM0, G1, ER+, VA+, HER2-) - Signed by Gregor Buckner DO on 02/05/2019 Atypical ductal hyperplasia of breast 04/23/2015 Mammographic calcification 04/01/2015 Current Treatment and Therapy Plans No current plan information found. Past Treatment and Therapy Plans Line Care Plan Name Start Date Discontinue Date Treatment Medications Discontinue Reason Plan Provider IV MAINTENANCE THERAPY PLAN 08/15/2018 03/03/2022 No medications scheduled. Therapy Complete Gregor Buckner DO Oncology Chemotherapy Treatment Plan Name Start Date Discontinue Date Treatment Medications Discontinue Reason Plan Provider Cycles TC: (DOCEtaxe l / Cyclophos phamide) 21 Day Cycles - Breast 9 09/01/2019 cycloPHOSphamide (CYTOXAN) IVPB (vial 20 mg/mL) ([id number])DOCEtaxel (TAXOTERE) IVPB in 250 mL (vial 20mg/mL) Therapy Complete Gregor Buckner DO 6 of 6 cycles started Lifetime Dose Tracking * Chemical Lifetime Dose Automatic Entry Manual Entr y cyclophosphamide 3,617.822 mg/m2 (7,344 mg) 3,617.822 mg/m2 (7,344 mg) 0 mg/m2 (0 mg) DLP 1,443 mGycm 1,443 mGycm 0 mGycm
--- OUTSIDE RECORDS SUMMARY | 2024-06-04 01:24 | XMS_ITS | Clinical Summary ---
Author Organization [place] [id number] Address [address] [place] [address] Care Team Providers Care Economic Development Specialist Name Role Phone Caro Cline NP Unavailable Gregor Buckner DO Unavailable [phone] Marcelo Palmer MD Unavailable [phone] Yemi Marin MD Primary Care Provider [phone] Allergies No known active allergies Medications cholecalciferol [...] from 08/09/2018:Stage Unknown(cTX, cN1(f), cM0, G3, ER+, OR+, HER2-) - Signed by Gregor Buckner DO on 08/12/2018 Pathologic stage from 01/31/2019:No Stage Recommended(ypT1a, pN0(i+), cM0, G1, ER+, OR+, HER2-) - Signed by Gregor Buckner DO on 02/05/2019 Atypical ductal hyperplasia of breast 04/23/2015 Mammographic calcification 04/01/2015 Encounters Date Type Department Care Team Description 04/23/2024 10:45 AM PLATING DEPARTMENT HELPER Office Visit [facility] [address] [place] [address] [address] [place] [address] Gregor Buckner DO Malignant neoplasm of upper-outer quadrant of right breast in female, estrogen receptor positive (HCC) (Primary Dx) 04/11/2024 Telephone [facility] [address] [place] [address] [address] [place] [address] Dyllan Hunter CMA 03/17/2024 Telephone [facility] [address] [place] [address] [address] [place] [address] Dyllan Hunter CMA from Last 3 Months Immunizations Immunization Administration Dates Next Due Influenza, Unspecified 12/01/2017 Pfizer SARS-CoV-2 Monovalent Vaccination (12+ Yrs) PURPLE 06/26/2020,06/03/2020 TD Preservative Free 02/20/2017 Surgical History Surgery Date Site/Laterality Comments BREAST BIOPSY 07/16/2018 Right COLONOSCOPY NERVE SURGERY 04/02/2005 - 04/01/2006 RLE MASTECTOMY Medical History Medical History Date Comments Hypertension Breast cancer (HCC) History of cancer chemotherapy 11/28/2018 B REAST CANCER Family History Medical History Relation Name Comments No Known Problems Brother Alzheimer's disease Father COLON CANCER Mother Colon cancer Mother Colon adenocarc inoma - (Added by TW Conv) Relation Name Status Comments Brother Alive Father Mother Alive Social History Tobacco Use Types Packs/Day Years [...] on file Legal Sex Female 4:32 AM PLATING DEPARTMENT HELPER Gender Identity Not on file Sexual Orientation Not on file 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 Not on file Not on file Not on file Obstetrics History Last Filed Vital Signs Vital Sign Reading Time Taken Comments Blood Pressure 134/85 04/23/2024 11:27 AM PLATING DEPARTMENT HELPER Pulse 82 04/23/2024 11:27 AM PLATING DEPARTMENT HELPER Temperature 37.1 C (98.8 F) 04/23/2024 11:27 AM PLATING DEPARTMENT HELPER Respiratory Rate 18 04/23/2024 11:27 AM PLATING DEPARTMENT HELPER Oxygen Saturation 96% 04/23/2024 11:27 AM PLATING DEPARTMENT HELPER Inhaled Oxygen Concentration - - Weight 86.8 kg (191 lb 6.4 oz) 04/23/2024 11:27 AM PLATING DEPARTMENT HELPER Height 179.1 cm (5' 10.5 ) 04/23/2024 11:[address] Body Mass Index 27.07 04/23/2024 11:27 AM PLATING DEPARTMENT HELPER Plan of Treatment Health Maintenance Due Date Last Done Comments Cervical Cancer Screening 1965 Colon Cancer Screening-Colonoscopy 1965 Depression Screening 1965 Hepatitis C Screening 1965 Hepatitis B Screening 07/07/1983 Regular Well Visit/Exam 18-64 07/07/1983 Pneumococcal vaccine <65 (1 of 2 - PCV) 1984 Zoster Vaccine (1 of 2) 1984 DTaP/Tdap/Td Vaccine (1 - Tdap) 02/21/2017 7 Breast Cancer Screening-Mammogram 06/14/2019 06/13/2018, 05/28/2017, 04/25/2016 Covid-19 Vaccine (3 - Pfizer risk series) 07/24/2020 06/26/2020, 06/03/2020 Influenza Vaccine (#1) 2023 12/01/2017 Procedures Procedure Name Priority Date/Time Associated Diagnosis Comments CRP, HIGH SENSITIVITY Routine 04/09/2024 9:22 AM PLATING DEPARTMENT HELPER Malignant neoplasm of upper-outer quadrant of right breast in female, estrogen receptor positive (HCC) COMPREHENSIVE METABOLIC PANEL Routine 04/09/2024 9:22 AM PLATING DEPARTMENT HELPER Malignant neoplasm of upper-outer quadrant of right breast in female, estrogen receptor positive (HCC) CBC WITH AUTO DIFFERENTIAL Routine 04/09/2024 9:22 AM PLATING DEPARTMENT HELPER Malignant neoplasm of upper-outer quadrant of right breast in female, estrogen receptor positive (HCC) SCREENING MAMMOGRAM BILATERAL W ABHIJEET Schedule Routine, Read Routine (OP Routine) 06/13/2018 8:44 AM CDT Encounter for screening mammogram for malignant neoplasm of breast from Last 3 Months or Most Recently Relevant to Health Maintenance Results * (ABNORMAL) CBC with auto differential (04/09/2024 9:22 AM PLATING DEPARTMENT HELPER) WBC 5.7 3.8 - 10.8 Thousand/u L [...] [facility] Blood 04/09/2024 9:22 AM PLATING DEPARTMENT HELPER 04/09/2024 9:22 AM PLATING DEPARTMENT HELPER us Gregor Buckner DO LAB BLOOD ORDERABLES Final R esult YOEL [facility] [address] [place] [address] * (ABNORMAL) CRP (cardiac risk) (04/09/2024 9:22 AM PLATING DEPARTMENT HELPER) hsCRP 5.3(H) mg/L [facility] Comment: Reference Range Optimal <1.0 Ten PS et al. Endocr Pract.2017;23(Suppl 2):1-87. For ages [...] infection and inflammation. Yanira TA, Elizabeth GA, iFlipe RW, et al. Markers of inflammation and cardiovascular disease: application to clinical and public health practice: A statement for healthcare professionals from the Centers for Disease Control and Prevention and the [place] [employer]. Circulation 2003; 107(3): 499-511. Blood 04/09/2024 9:22 AM PLATING DEPARTMENT HELPER 04/09/2024 9:22 AM PLATING DEPARTMENT HELPER Gregor Buckner DO LAB BLOOD ORDERABLES Final R esult QUEST [facility] [address] [facility] [place] [id number] * Comprehensive metabolic panel (04/09/2024 9:22 AM PLATING DEPARTMENT HELPER) Glucose 96 65 - 99 mg/dL [facility] [...] [facility] Blood 04/09/2024 9:22 AM PLATING DEPARTMENT HELPER 04/09/2024 9:22 AM PLATING DEPARTMENT HELPER Gregor AmayaWendy Buckner DO LAB BLOOD ORDERABLES Final R esult [facility] [address] [place] [address] * Screening Mammogram Bilateral W Abhijeet (06/13/2018 8:44 AM CDT) Anatomical Region Laterality Modality Breast Bilateral Mammography Narrative 06/14/2018 8:59 AM CDT Mammogram Technique: Bilateral Digital Breast Tomosynthesis, Bilateral C-view 2D Screening mammogram. Views obtained: bilateral craniocaudal and bilateral mediolateral oblique. Computer Aided Detection was performed. Mammogram Findings: The present examination has been compared to prior imaging studies performed at [facility] on 04/05/2015, 04/25/2016 and 05/28/2017. There are [...] to prior imaging studies performed at [facility] on 04/05/2015, 04/25/2016 and 05/28/2017. There are [...] Incomplete: Need additional imaging evaluation. Caro Cline [facility] IMG MAMMO PROC EDURES Final Result from Last 3 Months or Most Recently Relevant to Health Maintenance Insurance [facility] [place] OPEN ACCESS [facility] CMR Advance Directives For more information, please contact: [phone] * Full Code (Latest Code Status on File) Date Activated Date Inactivated Comments 01/10/2019 10:53 PM 01/11/2019 4:32 PM Care Teams Economic Development Specialist Relationship Specialty Start Date End Date Yemi Marin MD [facility] [place] [address] PCP - General Internal Medicine 09/14/23 Caro Cline, [facility] [address] [address] Referring Physician Nurse Practitioner 07/25/18 Gregor Buckner DO [address] [place] [id number] Medical Oncologist/Hematologis t Hematology and Oncology 08/14/18 Marcelo Palmer MD [address] [place] [address] Referring Physician Surgical Oncology 01/09/20
[2024-06-04 09:35] VITALS: BP 124/81; PULSE 81; RESP 19; TEMP 36.2; O2SAT 96; BMI 26.6
[2024-06-04] MEDS: LACTATED RINGERS 1,000 ML 150 ML IV CONT (09:48)
--- NOTE | 2024-06-04 09:58 | P.PNAN_ITS ---
Anes - Initial Pre Proc Eval Procedure: Operation Date: 06/04/24 10:30 Proposed Procedures p Colonoscopy - Vicente Chua MD Date/Time: 06/04/24 09:58 Surgeon: Vicente Chua MD Pre Op Diagnosis: hx of colon polyps Patient Data Age: 58 Gender: F Height: 1.8 m Weight: 86.6 kg Last Vital Signs Temp 36.2 C L 06/04/24 09:35 Pulse 81 06/04/24 09:35 Resp 19 06/04/24 09:35 BP 124/81 06/04/24 09:35 Pulse Ox 96 06/04/24 09:35 O2 Del Method Room Air 06/04/24 09:35 Allergies Allergy/AdvReac Type Severity Reaction Status Date / Time No Known Allergies Allergy Verified 06/04/24 09:44 Home Medications ?Medication ?Instructions ?Recorded ?Confirmed ?Type cholecalciferol (vitamin D3) 125 2,000 unit PO DAILY 02/18/19 06/04/24 History mcg (5,000 unit) tablet (Vitamin D3) tamoxifen 20 mg tablet 20 mg PO DAILY 06/13/19 06/04/24 History Patient hx anesthesia problems: none Family hx anesthesia problems: none Results Review: All pre-operative results and documents have been reviewed as part of the pre- operative evaluation. [facility], [facility] Past Medical History Medical History (Updated 06/04/24 @ 09:58 by Huang Cabrera MD) Overweight Breast cancer Family history of colon cancer Surgical History Surgical History H/O bilateral mastectomy Family History Family History Mother Colon cancer Father , Age 86 from Alzheimer's Disease Hypertension Grandparent , Age 85 from a Fall No problems noted. Grandparent , Age 93 Heart Issues Dementia Grandparent , Age 87 Heart Issues No problems noted. Social History Social History Smoking status: Never smoker Alcohol intake: current Drinks per week: 2 Alcohol use details: social drinker Substance use: never Living arrangements: with family Gender identity (if verbalized by the patient): Female Sexual Orientation (if Verbalized by the Patient): Straight or Heterosexual Spiritual care concerns: No Anes - Eval Final PreProcedure Day of Procedure 06/04/24 09:58 Patient weight: overweight Heart: regular rate and rhythm Lungs: clear to auscultation Airway: Mallampati scale class II Neurological: alert and oriented Last oral intake: >/= 8 hours ASA classification: III Emergent: no Anesthetic plan: proceed Anesthesia type and monitoring: general GIVS and standard monitoring Results Review: All pre-operative results and documents have been reviewed as part of the pre- operative evaluation. Informed Consent: The patient's anesthetic plan and its attendant risks and benefits were discussed with the patient/family/POA. Questions were solicited and answers provided to the satisfaction of the patient/family/POA.
--- NOTE | 2024-06-04 10:09 | PM.HPGS ---
History of Present Illness History of Present Illness Consent: Risks, benefits, and alternatives have been discussed and questions answered. Patient agrees to proceed with procedure. Chief complaint: hx of colon polyps Narrative: Ysabel Irene is a 58 year old female with colon polyp in 2020, also mother had colon cancer Review of Systems Review of Systems: All systems reviewed & are unremarkable except as noted in HPI and below PMFSH Past Medical History Medical History (Updated 06/04/24 @ 10:10 by Vicente Chua MD) Colon polyp Overweight Breast cancer Family history of colon cancer Surgical History Surgical History H/O bilateral mastectomy Family History Family History Mother Colon cancer Father , Age 86 from Alzheimer's Disease Hypertension Grandparent , Age 85 from a Fall No problems noted. Grandparent , Age 93 Heart Issues Dementia Grandparent , Age 87 Heart Issues No problems noted. Social History Social History Smoking status: Never smoker Alcohol intake: current Drinks per week: 2 Alcohol use details: social drinker Substance use: never Living arrangements: with family Gender identity (if verbalized by the patient): Female Sexual Orientation (if Verbalized by the Patient): Straight or Heterosexual Spiritual care concerns: No Meds Home Medications and Allergies Home Medications ?Medication ?Instructions ?Recorded ?Confirmed ?Type cholecalciferol (vitamin D3) 125 2,000 unit PO DAILY 02/18/19 06/04/24 History mcg (5,000 unit) tablet (Vitamin D3) tamoxifen 20 mg tablet 20 mg PO DAILY 06/13/19 06/04/24 History Allergies Allergy/AdvReac Type Severity Reaction Status Date / Time No Known Allergies Allergy Verified 06/04/24 09:44 Vital Signs Vital Signs - 24 hr 06/04/24 09:35 Temperature 97.1 F L Pulse Rate 81 Respiratory Rate 19 Blood Pressure 124/81 Pulse Oximetry 96 Oxygen Delivery Room Air Exam Const: General: comfortable and no acute distress HENMT: Face/Nose/Sinus: Normal nares present Eyes: General: appearance normal, both eyes and all related structures Neck: Neck: no JVD Resp: Auscultation: clear to auscultation bilaterally Cardio: Rate: regular rate Rhythm: regular rhythm GI: Inspection: non-distended GI Palp: Yes Soft to palpation Skin: General skin exam: normal color Neuro: Speech: normal speech Extrem: General: normal to inspection Psych: Mental Status: mental status grossly normal Assessment and Plan Assessment and plan (1) Family history of colon cancer: Code(s): Z80.0 - Family history of malignant neoplasm of digestive organs Status: Inactive Assessment and Plan: colonoscopy (2) Colon polyp: Code(s): K63.5 - Polyp of colon Status: Acute
[2024-06-04 10:28] VITALS: BP 107/63; PULSE 76; RESP 15; O2SAT 97
[2024-06-04 10:38] VITALS: BP 110/68; PULSE 78; RESP 15; O2SAT 99
[2024-06-04 10:48] VITALS: BP 121/76; PULSE 75; RESP 14; O2SAT 100
== END 2024-06-04 10:58 | disposition home or self-care (01) ==
PROVIDERS: PCP Internal Medicine; Visit Provider Internal Medicine Gastroenterology
PROC: 0DJD8ZZ Inspection of Lower Intestinal Tract, Via Natural or Artificial Opening Endoscopic (ICD-10-PCS; CPT 45378; principal; 2024-06-04 10:30)
DX: Z12.11 Encounter for screening for malignant neoplasm of colon (principal); K57.30 Diverticulosis of large intestine without perforation or abscess without bleeding; Z86.0100 Personal history of colon polyps, unspecified; Z80.0 Family history of malignant neoplasm of digestive organs
CPT/HCPCS: 45378; J2003; J2704; J7120